=== PATIENT | female | born 1980 | race Caucasian/White ===

== ENCOUNTER → 2017-09-19 11:24 | Outpatient (CLI) | payer BC, SELFPAY ==
--- NOTE | 2017-09-19 11:30 | XR_ITS ---
XR foot RT min 3V HISTORY: ITS.REASON: RT FOOT PAIN ORDERING PHYSICIAN: Kayleigh Benjamin PATIENT AGE: 36 years COMPARISON: None FINDINGS: No fracture or dislocation. No lytic or blastic change. There is normal mineralization.. The joint spaces are well-preserved. No significant degenerative/arthritic changes. No erosive changes evident. IMPRESSION: Negative, no acute finding
== END ==
PROVIDERS: PCP Internal Medicine Adolescent Medicine; Visit Provider Nurse Practitioner Family
DX: M79.671 Pain in right foot (principal)
CPT/HCPCS: 73630

== ENCOUNTER → 2017-11-07 09:07 | Outpatient (POV) | payer BC, SELFPAY | PROVIDERS: Visit Provider Dermatology | DX: Z00.00 Encounter for general adult medical examination without abnormal findings (principal) ==

== ENCOUNTER → 2019-04-22 12:04 | Outpatient (CLI) | payer BC, SELFPAY ==
[2019-04-22 12:50] LABS: Basophils # 0.1 K/mm3 (0-0.2); Basophils % 0.9 % (0.1-2.0); Eosinophils # 0.3 K/mm3 (0.0-0.4); Eosinophils % 3.7 % (0.1-12.0); Hematocrit 42.6 % (37.0-47.0); Hemoglobin 13.6 g/dL (12.2-16.2); Lymphocytes # 1.8 K/mm3 (0.7-4.5); Lymphocytes % 25.7 % (10-50); Mean Corpuscular HGB Conc 31.8 g/dL (31.8-35.4); Mean Corpuscular Hemoglobin 29.2 pg (27.0-31.2); Mean Corpuscular Volume 91.6 fl (81-99); Mean Platelet Volume 9.4 fl (7.4-10.4); Monocytes # 0.3 K/mm3 (0.1-1.0); Monocytes % 4.4 % (1.7-9.3); Neutrophils # 4.6 K/mm3 (1.8-7.8); Neutrophils % 65.3 % (37.0-80.0); Platelet Count 281 K/mm3 (142-424); Red Blood Count 4.65 M/mm3 (4.20-5.40); Red Cell Distribution Width 12.8 % (11.5-17.5); White Blood Count 7.1 K/mm3 (4.8-10.8)
[2019-04-22 14:15] LABS: Alanine Aminotransferase 19 U/L (12-78); Albumin/Globulin Ratio 1.2 (1.1-1.8); Alkaline Phosphatase 90 U/L (46-116); Anion Gap 13.5 mEq/L (5-15); Aspartate Amino Transferase 15 U/L (15-37); Bilirubin,Total 0.2 mg/dL (0.2-1.0); Blood Urea Nitrogen 8 mg/dL (7-18); Carbon Dioxide 27 mmol/L (21.0-32.0); Chloride 105 mmol/L (98-107); Creatinine,Serum 0.78 mg/dL (0.55-1.02); Estimated Glomerular Filt Rate 82 ml/min (>60); GFR (African American) 99 ML/MIN (>60); Globulin 3.3 gm/dl (1.3-3.2); Glucose 92 mg/dL (74-106); Potassium 4.5 mmoL/L (3.5-5.1); Sodium 141 mmol/L (136-145); Thyroid Stimulating Hormone 1.11 uIU/ml (0.358-3.740); Total Protein,Serum 7.3 gm/dL (6.4-8.2)
[2019-04-23 11:46] LABS: Vitamin B12 599 pg/mL (232-1245)
[2019-04-30 05:18] LABS: Vitamin B6 17.9 ug/L (2.0-32.8)
== END ==
PROVIDERS: Visit Provider Internal Medicine Adolescent Medicine
DX: K14.0 Glossitis (principal)
CPT/HCPCS: 36415; 80053; 82607; 84207; 84443; 85025

== ENCOUNTER → 2020-04-14 12:53 | Outpatient (CLI) | payer BC, SELFPAY ==
--- NOTE | 2020-04-14 12:53 | MM_ITS ---
PROCEDURE: MM DIG SC MAMM IMPLANT BI CAD Digital Breast Tomosynthesis Included CLINICAL INDICATION: screening There is no personal or family history of breast cancer. The patient has bilateral breast implants. The patient is currently on control pills. COMPARISON: MG DMSB DIGITAL MAMM-SCREEN BILATERAL from 09/06/2011 TECHNIQUE: Standard CC and MLO images and 3D Tomosynthesis was obtained. R2 CAD reviewed. FINDINGS: Moderate somewhat heterogenic fibroglandular densities are seen in the red cliff breast tissue around both breast implants. Both implants are intact with no evidence of leakage. There are no suspicious microcalcifications. IMPRESSION: Moderate breast density with no suspicious lesions seen and with both breast implants intact BI-RAD Category: 2 Benign Finding(s) FOLLOW-UP: 1YR 1 Year Follow-up (A letter has been sent to the patient regarding results of the study.) Dictated by: Dr. Rc Marques MD 04/15/2020 12:54 Dr. Rc Marques MD in [place] 04/15/2020 12:54
== END ==
PROVIDERS: PCP Internal Medicine Adolescent Medicine; Visit Provider Obstetrics & Gynecology
DX: Z12.31 Encounter for screening mammogram for malignant neoplasm of breast (principal)
CPT/HCPCS: 77063; 77067

== ENCOUNTER → 2020-04-19 09:34 | Outpatient (CLI) | payer BC, SELFPAY ==
--- NOTE | 2020-04-19 09:39 | XR_ITS ---
PROCEDURE: XR CHEST 2V CLINICAL HISTORY: COUGH COMPARISON: CR CXR CHEST(2 VIEWS-NOT PORTABLE) from 08/09/2013 FINDINGS: The cardiomediastinal silhouette and pulmonary vascularity are within normal limits. The lungs are clear without infiltrates, suspicious nodules, or pleural effusions. No acute bony abnormalities. IMPRESSION: No acute findings. Dictated by: Maximino Restrepo MD 04/19/2020 15:33 Maximino Restrepo MD in [place] 04/19/2020 15:33
== END ==
PROVIDERS: PCP Internal Medicine Adolescent Medicine; Visit Provider Internal Medicine Adolescent Medicine
DX: R05 Cough (principal)
CPT/HCPCS: 71046

== ENCOUNTER → 2021-03-09 07:51 | Outpatient (CLI) | payer BC, SELFPAY ==
--- NOTE | 2021-03-09 07:51 | US_ITS ---
PROCEDURE: US TRANSVAGINAL CLINICAL INDICATION: pelvic pain COMPARISON: CT ABDPELW/O CT ABD PELVIS W/O CONTRAST from 12/10/2016 FINDINGS: UTERUS: 6cm x 5cmx 4cm with a combined endometrial thickness of 7.4mm LEFT OVARY: [id number] with a volume of 4.3ml. RIGHT OVARY: [id number] with a volume of 2.2ml. The uterus is retroverted. There is a small left ovarian cyst at 1.4 cm. Small amount fluid is present in the cul-de-sac. IMPRESSION: Retroverted unremarkable appearing uterus. Small amount fluid in the cul-de-sac Dictated by: Maximino Restrepo MD 03/09/2021 17:40 Maximino Restrepo MD in [place] 03/09/2021 17:40
== END ==
PROVIDERS: PCP Internal Medicine Adolescent Medicine; Visit Provider Obstetrics & Gynecology
DX: R10.2 Pelvic and perineal pain (principal)
CPT/HCPCS: 76830

== ENCOUNTER → 2022-01-19 16:31 | Outpatient (CLI) | payer BC, SELFPAY | PROVIDERS: Visit Provider Obstetrics & Gynecology | DX: N39.0 Urinary tract infection, site not specified (principal); B95.1 Streptococcus, group B, as the cause of diseases classified elsewhere | CPT/HCPCS: 87086; 87088; 87186 ==

== ENCOUNTER → 2022-02-02 16:01 | Outpatient (CLI) | payer BC, SELFPAY ==
--- NOTE | 2022-02-02 16:02 | MR_ITS ---
PROCEDURE INFORMATION: Exam: MR Head Without Contrast Exam date and time: 02/02/2022 4:10 PM Age: 41 years old Clinical indication: Pain; Headache; Migraine; Additional info: Persistant headaches despite treatment TECHNIQUE: Imaging protocol: Magnetic resonance imaging of the head without contrast. COMPARISON: No relevant prior studies available. FINDINGS: Brain parenchyma demonstrates normal signal intensity without an intra- or extra-axial mass or abnormality. No mass effect or midline shift. No evidence of restricted diffusion in the supra-or infratentorial brain. . Midline brain structures including the corpus callosum, pituitary gland, pineal region, and craniovertebral junction are unremarkable. Ventricles and sulci are normal without evidence of hydrocephalus. Intracranial vessels demonstrate a normal flow-void. IMPRESSION: 1. Normal study without a supra-, infratentorial mass or abnormality. 2. No evidence of hemorrhagic or ischemic infarct and no hydrocephalus.
== END ==
PROVIDERS: PCP Internal Medicine Adolescent Medicine; Visit Provider Nurse Practitioner Family
DX: R51.9 Headache, unspecified (principal)
CPT/HCPCS: 70551

== ENCOUNTER → 2022-04-10 08:33 | Outpatient (POV) | payer BC, SELFPAY | PROVIDERS: Visit Provider Dermatology | DX: Z00.00 Encounter for general adult medical examination without abnormal findings (principal) ==

== ENCOUNTER 2022-07-29 16:13 | Emergency (ER) | payer BC, SELFPAY ==
[2022-07-29 16:20] VITALS: BP 122/91; PULSE 94; RESP 21; TEMP 37.1; O2SAT 99; BMI 31.8
[2022-07-29 16:35] LABS: UTC Strep Screen (Rapid) Negative (Negative)
[2022-07-29 16:36] VITALS: BP 122/91; PULSE 94; RESP 21; TEMP 37.1; O2SAT 99
--- NOTE | 2022-07-29 16:36 | EXP.UTC ---
Discharge Plan Disposition Patient Disposition: Home, Self-Care Condition: Good Prescriptions Prescriptions: New prednisone 10 mg tablet 10 mg PO BID 3 Days Qty: 6 0RF amoxicillin [amoxicillin] 500 mg tablet 500 mg PO TID 10 Days Qty: 30 0RF benzonatate [benzonatate] 100 mg capsule 100 mg PO TIDP PRN (Reason: Cough) Qty: 30 0RF No Action phentermine [Adipex-P] 37.5 mg tablet 37.5 mg PO DAILY Rx Instructions: must administer 30 minutes before or 1-2 hours after breakfast Referrals Follow up/Referrals: Orlin Del Rio MD [Primary Care Provider] - See instructions Activity Restrictions/Add. Instructions Additional Instructions/Restrictions: Drink plenty of fluids. Take tylenol or ibuprofen for pain or fever. Take the medications as directed. Follow up with your regular doctor. GO TO THE ER FOR ANY WORSENING SYMPTOMS Clinical Impressions Clinical Impression: Pharyngitis Stand Alone Forms Stand Alone Forms: Work/School Release Instructions Patient Instructions: Strep Throat, DI for Strep Throat Discharge ED Provider: Zion Mchugh [facility] General Stated complaint: sore throat,headache,vomiting Mode of Arrival: Ambulatory Source of Information: Patient Limitations: No Limitations Time Seen by Provider: 07/29/22 16:34 Description of Symptoms (Recalled from Triage Doc. by RN): PATIENT C/O HEADACHE THAT STARTED LAST NIGHT AND SORE THROAT SINCE THIS MORNING HEENT Symptoms (Recalled from RN notes): Yes Resp Symptoms (Recalled from RN notes): No Skin Symptoms (Recalled from RN notes): No MS Symptoms (Recalled from RN notes): No Functional Status (Recalled from RN notes): WNL History of Present Illness Provider Complaint: She sstate that for the past 2 days she has had sore thraot, chills and malaise. Related Data Home Medications Medication Instructions Recorded Confirmed phentermine 37.5 mg tablet 37.5 mg PO DAILY Weight loss 07/29/22 07/29/22 (Adipex-P) Previous Rx's Medication Instructions Recorded amoxicillin 500 mg tablet 500 mg PO TID 10 days #30 tabs 07/29/22 benzonatate 100 mg capsule 100 mg PO TIDP PRN Cough #30 caps 07/29/22 prednisone 10 mg tablet 10 mg PO BID 3 days #6 tabs 07/29/22 Allergies Allergy/AdvReac Type Severity Reaction Status Date / Time shellfish derived Allergy Severe Anaphylaxis Verified 07/13/22 09:14 Worker's Comp Is this a Worker's Comp case?: No [facility] Disclaimer: The information contained in this section may have been updated after the patient was seen, as this information can be updated by other users. Medical History Chronic migraine Surgical History H/O breast augmentation History of endometrial ablation History of tubal ligation Family History Other Corticobasal degeneration Vascular dementia Social History Smoking Status: Never smoker alcohol intake: never substance use type: denies use current occupational status: employed Travel in the last 8 weeks: None household members: family housing: house ROS Obtained: Yes All systems reviewed & no additional complaints except as documented Constitutional Constitutional: Reports chills and Reports fever(s) Eyes Eyes: Denies eye discharge ENT Ears, Nose, Mouth, and Throat: Reports as per HPI Cardiovascular Cardiovascular: Denies chest pain Respiratory Respiratory: Denies chest congestion and Reports cough Gastrointestinal Gastrointestingal: Reports nausea; Denies abdominal pain, constipation, cramping, diarrhea or vomiting Musculoskeletal Musculoskeletal: Denies arthralgias Integumentary/Breasts Skin/Breast: Denies rash Neurologic Neurologic: Denies paresthesias Physical Exam General General appearance: alert and in
== END 2022-07-29 17:28 | disposition home or self-care (01) ==
PROVIDERS: Emergency Provider Nurse Practitioner Family; PCP Internal Medicine Adolescent Medicine
DX: J02.9 Acute pharyngitis, unspecified (principal); R51.9 Headache, unspecified; R53.81 Other malaise
CPT/HCPCS: 87880; 99212; 99214; G0463

== ENCOUNTER → 2023-03-05 11:07 | Outpatient (CLI) | payer BC, SELFPAY ==
[2023-03-06 11:04] LABS: FSH 7.9 mIU/mL (.); LH 10.4 mIU/mL (.); Testosterone,Total 11 ng/dL (4-50)
== END ==
PROVIDERS: PCP Internal Medicine Adolescent Medicine; Visit Provider Obstetrics & Gynecology
DX: N95.1 Menopausal and female climacteric states (principal)
CPT/HCPCS: 36415; 82670; 83001; 83002; 84403

== ENCOUNTER 2023-11-19 09:35 | Outpatient (CLI) | payer BC, SELFPAY ==
--- NOTE | 2023-11-19 09:50 | XR_ITS ---
FINAL REPORT CLINICAL HISTORY: LEFT WRIST PAIN FINDINGS: AP, oblique, and lateral views of the left wrist were obtained. There is no prior exam for comparison. There is no acute fracture or dislocation. The joint spaces are preserved. The soft tissues are normal. IMPRESSION: No acute osseous abnormality of the left wrist. If pain persists, MR is recommended. Reviewed, Interpreted and Dictated by Franci Coelho MD Transcribed by Megha Musa Authenticated and [facility]
== END 2023-11-19 23:59 | disposition home or self-care (01) ==
LOC: RAD 09:37
PROVIDERS: PCP Nurse Practitioner Family; Visit Provider Nurse Practitioner Family
DX: M25.532 Pain in left wrist (principal)
CPT/HCPCS: 73110

== ENCOUNTER 2024-04-17 12:48 | Outpatient (CLI) | payer BC, SELFPAY ==
--- NOTE | 2024-04-17 12:49 | US_ITS ---
PROCEDURE: US TRANSVAGINAL CLINICAL INDICATION: Heavy Vag Bleeding, Hx of Endo Ablation COMPARISON: US US TRANSVAGINAL from 03/09/2021 FINDINGS: Transvaginal sonographic images of the pelvis were obtained. UTERUS: 6.3cm x 4.7cmx 4.2cm Retroflexed and axial with a combined endometrial thickness of 7.6mm. LEFT OVARY: 1.8cmx1.7cmx1.6cm with a volume of 2.4ml. RIGHT OVARY: 1.1cmx 1.1cmx1.4cm with a volume of 0.9ml. Both ovaries are seen and appear normal. Doppler flow to both ovaries are seen. There is no fluid in the cul-de-sac. IMPRESSION: 1. Retroflexed and axial uterus normal in shape and size. The endometrium appears normal and measures 7.6 cm. 2. Both ovaries are difficult to visualize but appear normal. 3.No fluid in the cul-de-sac. Dictated by: Tahir Wesley MD 04/18/2024 01:22 Tahir Wesley MD in [place] 04/18/2024 01:22
== END 2024-04-17 23:59 | disposition home or self-care (01) ==
LOC: RAD 12:49
PROVIDERS: PCP Nurse Practitioner Family; Visit Provider Obstetrics & Gynecology
DX: N93.9 Abnormal uterine and vaginal bleeding, unspecified (principal); N95.1 Menopausal and female climacteric states; Z98.890 Other specified postprocedural states; Z98.51 Tubal ligation status
CPT/HCPCS: 76830

== ENCOUNTER 2024-05-25 08:27 | Outpatient (CLI) | payer BC, SELFPAY ==
--- NOTE | 2024-05-25 | US_ITS ---
PROCEDURE INFORMATION: Exam: US Left Breast, Complete US Right Breast, Complete Exam date and time: 05/25/2024 8:28 AM Age: 43 years old Clinical indication: Screening exam. The patient refuses mammography. TECHNIQUE: Imaging protocol: Complete ultrasound of all four quadrants of the left breast and the retroareolar regions, including ultrasound of the axilla when performed. Complete ultrasound of all four quadrants of the right breast and the retroareolar regions, including ultrasound of the axilla when performed. COMPARISON: MG MM DIG SC MAMM IMPLANT BI CAD 04/14/2020 1:01 PM FINDINGS: ULTRASOUND: Breast ultrasound findings: Right breast ultrasound: Parallel circumscribed hypoechoic oval mass at 6 o'clock in the retroareolar region measuring 0.9 x 1.0 x 0.4 cm Complicated cyst or parallel circumscribed hypoechoic oval mass at 2 o'clock 5 cm from the nipple measuring 0.9 x 0.6 x 0.4 cm. Benign simple cyst at 5 o'clock measuring 0.6 cm at 6 o'clock measuring 0.6 cm. The visualized portions of the implant are unremarkable. Left breast ultrasound: Complicated cyst or mass in the left breast at 1 o'clock 6 cm from the nipple measuring 0.5 x 0.4 x 0.5 cm with poorly defined margins. Complicated cyst at 10 o'clock 5 cm from the nipple measuring 1.8 x 1.8 x 1.1 cm. Benign simple cyst at 10 o'clock measuring 0.4 cm. No abnormal lymph nodes in the axilla. The visualized portions of the implant are unremarkable. IMPRESSION: 1. Left breast mass at 1 o'clock 6 cm from the nipple is suspicious. Recommend ultrasound-guided needle biopsy. 2. Complicated cyst or mass in the right breast at 2 o'clock and solid mass in the right breast at 6 o'clock are probably benign. Recommend six-month follow-up right breast ultrasound to ensure stability. ASSESSMENT: BI-RADS Category 4: Suspicious.
== END 2024-05-25 23:59 | disposition home or self-care (01) ==
LOC: RAD 08:27
PROVIDERS: PCP Nurse Practitioner Family; Visit Provider Nurse Practitioner Family
DX: Z12.31 Encounter for screening mammogram for malignant neoplasm of breast (principal); N64.4 Mastodynia; Z98.82 Breast implant status
CPT/HCPCS: 76641

== ENCOUNTER 2024-06-01 09:48 | Outpatient (CLI) | payer BC, SELFPAY ==
--- NOTE | 2024-06-01 09:48 | US_ITS ---
FINAL REPORT CLINICAL HISTORY: LT BREAST MASS -- LT BREAST BIOPSY -- DR DANY BANDA -- FNA AND BIOPENCE RT BREAST MASS X 2 -- RT BREAST BIOPSY -- DR NHI BANDA -- MAMMATOME FINDINGS: ULTRASOUND-GUIDED LEFT BREAST CORE BIOPSY TECHNIQUE: Limited images were obtained to localize region of interest. The left breast was prepped in a routine sterile fashion and locally anesthetized with 1% lidocaine. Standard written informed consent was obtained. The possibility breast implant rupture was emphasized to the patient. The lesion of interest was extremely small measuring 5 x 4 mm located along the implant surface at 1:00, 6 cm from the nipple. The biopsy needle was positioned within the outer periphery of the lesion. A total of 4 passes were made with a 18 gauge core biopsy needle. This yielded small solid fragments. An effort to obtain additional potential diagnostic material, FNA was also performed. 3 passes were made with 25 and 22-gauge needles and submitted for cytologic evaluation. No biopsy marker clip was placed due to risk of implant rupture. However the nodule of interest was well visualized following biopsy. She had additional biopsy or surgery be necessary lesion should remain visible for localization. Procedure was well tolerated . CONCLUSION: 1. Technically successful ultrasound guided core biopsy of left breast lesion as above. 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 FNA showed scant inflammatory changes and rare ductal epithelial groups without malignancy.. Pathology is concordant with sonographic findings. Recommend 6 month sonographic follow-up as routine benign postbiopsy surveillance. Authenticated and ERN
--- NOTE | 2024-06-01 09:48 | US_ITS ---
FINAL REPORT CLINICAL HISTORY: BREAST MASS-- dr dan-- FINDINGS: ULTRASOUND-GUIDED RIGHT BREAST CORE BIOPSY TECHNIQUE: Limited images were obtained to localize region of interest. Oval mass was again demonstrated at 6:00. The right breast was prepped in a routine sterile fashion and locally anesthetized with 1% lidocaine. Standard written informed consent was obtained. The risk of breast implant puncture was emphasized to the patient. An 11-gauge vacuum assisted hand-held device was utilized. Great care was taken to position the needle avoid the breast implant. The needle was positioned posterior to the lesion. Multiple vacuum assisted core samples were obtained. The lesion was noted to be significantly smaller following biopsy. A biopsy marker clip was deployed in satisfactory position. The clip was well seen within the lesion. In addition no prebiopsy mammogram was performed due to patient's concern for implant 3. A postbiopsy mammogram was not performed for the same reason. Procedure was well tolerated . CONCLUSION: 1. Technically successful ultrasound guided vacuum assisted core biopsy of right breast lesion as above. 2. Biopsy marker clip deployed Histopathology results reveal fibroadenoma. Pathology is concordant with imaging findings. Recommend 6 month sonographic follow-up as routine benign postbiopsy surveillance. Authenticated and ERN
== END 2024-06-01 23:59 | disposition home or self-care (01) ==
LOC: RAD 09:48
PROVIDERS: PCP Nurse Practitioner Family; Visit Provider Obstetrics & Gynecology
DX: N63.10 Unspecified lump in the right breast, unspecified quadrant (principal); N63.20 Unspecified lump in the left breast, unspecified quadrant
CPT/HCPCS: 19083; C2618